=== PATIENT | male | born 1975 | race Caucasian/White ===

== ENCOUNTER 2016-06-15 11:51 | Emergency (ER) | payer OTHER ==
[~2016-06-15] VITALS: Ht 165.1 cm; Wt 68.0 kg
[~2016-06-15 11:51] MED LIST: ATA25 PO; ATOR10TA PO; VENL150C1 PO
[2016-06-15 12:10] VITALS: BP 127/77
--- NOTE | 2016-06-15 12:28 | NUR ---
PT. PRESENTS TO THE ED WITH C/O LOW BACK BACK PAIN X COUPLE MONTHS, HX LOW BACK PAIN, PT. STATES HE WAS SEEN AT [facility] LAST NIGHT FOR SHOULDER PAIN AND WAS GIVEN 5 NORCOS BUT PT. HAS ALREADY TAKEN ALL OF THOSE, NO VISUAL SIGNS OF DISTRESS NOTED, BREATHING EVEN AND UNLABORED, AAOX4, AMBULATORY, GAIT STEADY
[2016-06-15] MEDS ORDERED: CARISOPRODOL 350 MG TAB PO ONE (12:35)
[2016-06-15] MEDS ORDERED: KETOROLAC 60 MG/2 ML VIAL IM ONE (12:35)
[2016-06-15 13:33] VITALS: BP 131/82
== END 2016-06-15 13:34 | disposition home or self-care (01) ==
LOC: MED 11:51
DX: G89.29 Other chronic pain (principal); M54.5 Low back pain; E78.00 Pure hypercholesterolemia, unspecified; F17.210 Nicotine dependence, cigarettes, uncomplicated; Z71.6 Tobacco abuse counseling; Z93.3 Colostomy status; Z98.890 Other specified postprocedural states
CPT/HCPCS: 82948; 96372; 99283; J1885

== ENCOUNTER 2016-08-10 12:03 | Emergency (ER) | payer OTHER ==
[~2016-08-10] VITALS: Ht 165.1 cm; Wt 68.0 kg
[~2016-08-10 12:03] MED LIST changes: -ATA25 PO; +ATARAX HCL25 MG PO; -ATOR10TA PO; +EFFEXOR-XR150 MG PO; +LIPITOR10 MG PO; -VENL150C1 PO
[2016-08-10 12:13] VITALS: BP 139/81
[2016-08-10] MEDS ORDERED: DULOXETINE30 MG PO (12:18)
--- NOTE | 2016-08-10 13:00 | NUR ---
PATIENT PRESENTS TO ED WITH ONGOING RIGHT HAND PAIN AND LOWER BACK PAIN X YEARS PER PT . PT STATES . DENIES N/V/D; SKIN IS PINK/WARM/DRY; AAOX4 WITH EVEN AND STEADY GAIT; LUNGS CLEAR BL; HR EVEN AND REGULAR; PT DENIES ANY FEVER, CP, SOB, OR COUGH AT THIS TIME; PATIENT STATES PAIN OF 10/10 AT THIS TIME; VSS; PATIENT POSITIONED FOR COMFORT; HOB ELEVATED; BEDRAILS UP X2; BED DOWN. ER MD MADE AWARE OF PT STATUS.
--- NOTE | 2016-08-10 13:14 | NUR ---
Patient discharged with v/s stable. Written and verbal after care instructions given and explained. Patient alert, oriented and verbalized understanding of instructions. Ambulatory with steady gait. All questions addressed prior to discharge. ID band removed. Patient advised to follow up with PMD. Rx of ROBAXIN,NEURONTIN given. Patient educated on indication of medication including possible reaction and side effects. Opportunity to ask questions provided and answered.
[2016-08-10 13:15] VITALS: BP 132/84
== END 2016-08-10 13:15 | disposition home or self-care (01) ==
LOC: MED 12:03
DX: M47.898 Other spondylosis, sacral and sacrococcygeal region (principal); M19.041 Primary osteoarthritis, right hand; G89.29 Other chronic pain

== ENCOUNTER 2016-08-27 13:35 | Emergency (ER) | payer MEDICAID, OTHER ==
[~2016-08-27] VITALS: Ht 167.6 cm; Wt 72.1 kg
[~2016-08-27 13:35] MED LIST changes: +ATA25 PO; -ATARAX HCL25 MG PO; +ATOR10TA PO; +DULO30EC PO; -EFFEXOR-XR150 MG PO; -LIPITOR10 MG PO; +VENL150C1 PO
[2016-08-27 13:57] VITALS: BP 112/68
--- NOTE | 2016-08-27 15:05 | NUR ---
pt left without being seen--walked out of er, stating "fuck this place, you guys made me wait"! pt did not allow an explanation---
--- NOTE | 2016-08-27 15:12 | NUR ---
pt returned to waiting lobby
--- NOTE | 2016-08-27 15:20 | NUR ---
pt walked out again
== END 2016-08-27 15:50 | disposition left against medical advice (07) ==
LOC: MED 13:35
DX: M54.5 Low back pain (principal); Z53.21 Procedure and treatment not carried out due to patient leaving prior to being seen by health care provider

== ENCOUNTER 2016-10-21 01:43 | Emergency (ER) | payer MEDICAID, OTHER ==
[~2016-10-21] VITALS: Ht 165.1 cm; Wt 75.7 kg
[2016-10-21 01:49] VITALS: BP 154/97
[2016-10-21] MEDS ORDERED: NACL 0.9% 1,000 ML IV ONE (02:00)
[2016-10-21] MEDS ORDERED: PROMETHAZINE 25 MG/ML VIAL IM ONE (02:00)
[2016-10-21] MEDS ORDERED: ONDANSETRON 4 MG/2 ML VIAL IVP ONE (02:00)
--- NOTE | 2016-10-21 02:18 | NUR ---
PATIENT AMBULATED TO ER OF1.
[2016-10-21] MEDS ORDERED: HYDROmorphone 1 MG/ML AMP IVP ONE (02:25)
[2016-10-21 02:42] LABS: APPEARANCE,URINE HAZY (CLEAR); BILIRUBIN,URINE 1+ (NEGATIVE); BLOOD, URINE NEGATIVE (NEGATIVE); COLOR,URINE YELLOW (YELLOW); LEUKOCYTE ESTERASE ,URINE NEGATIVE (NEGATIVE); NITRITE, URINE NEGATIVE (NEGATIVE); PROTEIN,URINE TRACE (NEGATIVE); UGLUCOSE NEGATIVE (NEGATIVE); UROBILINOGEN,URINE 0.2 EU/dL (0.2 - 1)
[2016-10-21 02:54] LABS: BACTERIA,URINE OCCASSIONAL /HPF (None Seen); ICTOTEST NEGATIVE (NEGATIVE); MUCUS,URINE 3+ /LPF (None Seen); RBC,URINE 0-5 (RARE) /HPF (0-5); SQUAMOUS EPITHELIAL CELL,UR 4-10 (MOD) /LPF (0-3 (FEW)); WBC,URINE 0-5 (RARE) /HPF (0-5)
--- NOTE | 2016-10-21 02:56 | NUR ---
ABDOMINAL PAIN, VOMITTING X4 DAYS, HX HYPERTENSION, HIGH CHOLESTEROL AND PRE DIABETIC,BS 114
--- NOTE | 2016-10-21 03:00 | NUR ---
PATIENT BEING EVALUATED BY DR. TONG.
[2016-10-21 03:04] LABS: HEMATOCRIT 43.1 % (36-52); HEMOGLOBIN 14.1 g/dL (12.0-18.0); MEAN CORPUSCULAR HEMOGLOBIN 30 pg (27-31); MEAN CORPUSCULAR HGB CONC 33 g/dL (33-37); MEAN CORPUSCULAR VOLUME 93 fL (80-94); PLATELET COUNT (AUTO) 281 K/uL (140-450); RED BLOOD CELL COUNT(AUTO) 4.62 MIL/uL (4.20-6.10); RED CELL DISTRIBUTION WIDTH 12.9 % (11.6-13.7); WHITE BLOOD COUNT (AUTO) 12.5 K/uL (4.8-10.8)
[2016-10-21 03:10] LABS: ANION GAP 15.2 (8-16); CALCIUM 9.1 mg/dL (8.5-10.1); CARBON DIOXIDE 25.2 mmol/L (21-32); POTASSIUM 3.4 mmol/L (3.5-5.1)
[2016-10-21 03:13] LABS: LYMPHOCYTES % (MANUAL) 8 % (20-46); MONOCYTES % (MANUAL) 2 % (5-12); NEUTROPHILS % (MANUAL) 90 (43-65)
[2016-10-21 03:16] LABS: ALBUMIN 4.3 g/dL (3.4-5.0); TOTAL BILIRUBIN 0.7 mg/dL (0.0-1.0)
[2016-10-21 03:45] VITALS: BP 117/68
--- NOTE | 2016-10-21 03:45 | NUR ---
Patient discharged with v/s stable. Written and verbal after care instructions given and explained. Patient alert, oriented and verbalized understanding of instructions. Ambulatory with steady gait. All questions addressed prior to discharge. ID band removed. Patient advised to follow up with PMD. Rx of Phenergan and [place] given. Patient educated on indication of medication including possible reaction and side effects. Opportunity to ask questions provided and answered.
== END 2016-10-21 03:45 | disposition home or self-care (01) ==
LOC: MED 01:43
DX: R11.2 Nausea with vomiting, unspecified (principal); E78.5 Hyperlipidemia, unspecified; E11.9 Type 2 diabetes mellitus without complications; I10 Essential (primary) hypertension; E78.00 Pure hypercholesterolemia, unspecified
CPT/HCPCS: 36415; 74176; 80053; 81001; 82150; 82948; 83690; 85025; 96361; 96372; 96374; 96375; 99285; J1170; J2405; J2550; J7030

== ENCOUNTER 2017-06-15 23:18 | Emergency (ER) | payer OTHER ==
[~2017-06-15] VITALS: Ht 165.1 cm; Wt 68.0 kg
--- NOTE | 2017-06-15 23:18 | NUR ---
Patient [facility] BLS accompanied by Merrill JENKINS, transferred to chair C. RN evaluating patient.
[2017-06-15 23:20] VITALS: BP 137/93
--- NOTE | 2017-06-15 23:20 | NUR ---
PATIENT PRESENTS TO ED WITH LEFT KNEE PAIN X1 HOUR. PT DENIES N/V/D; SKIN IS PINK/WARM/DRY; AAOX4 WITH EVEN AND STEADY GAIT; LUNGS CLEAR BL; HR EVEN AND REGULAR; PT DENIES ANY FEVER, CP, SOB, OR COUGH AT THIS TIME; PATIENT STATES PAIN OF 0/10 AT THIS TIME; VSS; PATIENT POSITIONED FOR COMFORT; SITTING UPRIGHT IN CHAIR WITH PD AT CHAIRSIDE. ER MD MADE AWARE OF PT STATUS.
--- NOTE | 2017-06-15 23:48 | NUR ---
Dr. Aguila evaluating patient.
[2017-06-16] VITALS: BP 137/93
--- NOTE | 2017-06-16 | NUR ---
Patient discharged with v/s stable. Written and verbal after care instructions given and explained. Patient verbalized understanding. Police with in custody. All questions addressed prior to discharge. Advised to follow up with PMD.
--- NOTE | 2017-06-16 00:01 | NUR ---
PATIENT BIB [place]. PATIENT EXAMINED BY . PATIENT MEDICALLY CLEARED AND RELEASED IN CUSTODY IN STABLE CONDITION. ORIGINAL PRE-BOOK FORM GIVEN TO OFFICER .
== END 2017-06-16 00:01 ==
LOC: MED 23:18
DX: Z02.89 Encounter for other administrative examinations (principal); S13.4XXA Sprain of ligaments of cervical spine, initial encounter; S80.212A Abrasion, left knee, initial encounter; E78.00 Pure hypercholesterolemia, unspecified; E11.9 Type 2 diabetes mellitus without complications; I10 Essential (primary) hypertension; Z79.899 Other long term (current) drug therapy; W19.XXXA Unspecified fall, initial encounter; Y93.02 Activity, running; Y92.89 Other specified places as the place of occurrence of the external cause; Y99.8 Other external cause status
CPT/HCPCS: 73562; 99284

== ENCOUNTER 2021-07-19 19:37 | Emergency (ER) | payer OTHER ==
[~2021-07-19] VITALS: Ht 167.6 cm; Wt 81.8 kg
[~2021-07-19 19:37] MED LIST changes: -DULO30EC PO; +DULO30EC68 PO; -VENL150C1 PO; +VENL150C4 PO
[2021-07-19 19:43] VITALS: BP 137/91
--- NOTE | 2021-07-19 19:52 | NUR ---
pt ambulatory to bed 03.
--- NOTE | 2021-07-19 20:08 | NUR ---
Dr. Nicholson at bedside to exam patient.
--- NOTE | 2021-07-19 20:50 | NUR ---
Geovanna monae in [facility] - 07/19/21 at 2056 by HANNY xr at bedside
--- NOTE | 2021-07-19 20:54 | NUR ---
xr at [facility]
[2021-07-19] MEDS ORDERED: KETOROLAC 30 MG/ML VIAL IM ONE (20:55)
[2021-07-19 20:56] LABS: BASOPHILS # (AUTO) 0.1 K/uL (0.00-0.22); BASOPHILS % (AUTO) 0.8 % (0.0-2.0); EOSINOPHILS # (AUTO) 0.1 K/uL (0-0.4); EOSINOPHILS % (AUTO) 0.5 % (0.0-4.0); HEMATOCRIT 36.7 % (36-52); HEMOGLOBIN 12.4 g/dL (12.0-18.0); LYMPHOCYTES % (AUTO) 15.3 % (20.5-51.1); MEAN CORPUSCULAR HEMOGLOBIN 31 pg (27-31); MEAN CORPUSCULAR HGB CONC 34 g/dL (33-37); MEAN CORPUSCULAR VOLUME 91.8 fL (80-94); MONOCYTES % (AUTO) 7.7 % (1.7-9.3); NEUTROPHILS % (AUTO) 75.7 % (42.2-75.2); PLATELET COUNT (AUTO) 319 K/uL (140-450); RED BLOOD CELL COUNT(AUTO) 3.99 MIL/uL (4.20-6.10); RED CELL DISTRIBUTION WIDTH 14.1 % (11.6-13.7); WHITE BLOOD COUNT (AUTO) 13.2 K/uL (4.8-10.8)
[2021-07-19] MEDS ORDERED: KETOROLAC 30 MG/ML VIAL IVP ONE (21:10)
[2021-07-19 21:40] LABS: ALBUMIN 3.6 g/dL (3.4-5.0); CARBON DIOXIDE 24.8 mmol/L (21-32); POTASSIUM 3.8 mmol/L (3.5-5.1); TOTAL BILIRUBIN 0.3 mg/dL (0.0-1.0)
--- NOTE | 2021-07-19 21:40 | NUR ---
PATIENT COMPLAINING OF PAIN 9/10-THROBBING, BURNING, NUMB. ERMD MADE AWARE.
[2021-07-19] MEDS ORDERED: MORPHINE SULFATE 4 MG/ML SYR IVP ONE (21:45)
[2021-07-19 21:46] LABS: LIPASE 57 U/L (73-393)
--- NOTE | 2021-07-19 23:20 | NUR ---
Patient signed consent for CT angio chest.
--- NOTE | 2021-07-19 23:31 | NUR ---
Patient taken to CT scan via wheel chair.
--- NOTE | 2021-07-20 01:17 | NUR ---
PATIENT SITTING AT THE EDGE OF THE BED AWAITING RESULTS AND PLAYING ON PHONE. ATTEMPTED TO LEAVE BUT NAVID SIFUENTES SPOKE WITH PATIENT AND WOULD STAY A BIT LONGER. PATIENT AAOX4, GCS 15.
--- NOTE | 2021-07-20 01:49 | NUR ---
patient becoming slightly restless for awaiting on results. Called CT for awaiting results.
[2021-07-20] MEDS ORDERED: NAPR-54 PO (02:09)
--- NOTE | 2021-07-20 02:17 | NUR ---
pt denies ongoing pain or sob.
[2021-07-20 02:18] VITALS: BP 138/84
== END 2021-07-20 02:18 | disposition home or self-care (01) ==
LOC: MED 19:37
DX: R07.9 Chest pain, unspecified (principal); E11.9 Type 2 diabetes mellitus without complications; I10 Essential (primary) hypertension; E78.5 Hyperlipidemia, unspecified; Z71.6 Tobacco abuse counseling; Z79.1 Long term (current) use of non-steroidal anti-inflammatories (NSAID); Z79.899 Other long term (current) drug therapy
CPT/HCPCS: 36415; 71045; 71275; 80053; 83690; 83880; 84484; 85025; 85379; 93005; 96374; 96375; 99285; J1885; J2270; Q9967

== ENCOUNTER 2021-07-29 15:59 | Inpatient (IN) | payer OTHER ==
[~2021-07-29] VITALS: Ht 167.6 cm; Wt 73.5 kg
[~2021-07-29 15:59] MED LIST changes: +NAPR-54 PO
[2021-07-29 16:11] VITALS: BP 149/86
[2021-07-29] MEDS ORDERED: NACL 0.9% 1,000 ML IV ONE (17:00)
[2021-07-29] MEDS ORDERED: ONDANSETRON 4 MG/2 ML VIAL IVP ONE (17:35)
--- NOTE | 2021-07-29 17:42 | NUR ---
PT C/O SUBSTERNAL CHEST PRESSURE X3 DAYS WITH SOB. PT STATES PAIN WORSENS WITH INSPIRATION. STACH ON MONITOR. IV INSERTED TO LEFT AC #18GUAGE FLUIDS INFUSING PER ORDER.
[2021-07-29 18:28] LABS: BASOPHILS # (AUTO) 0.1 K/uL (0.00-0.22); BASOPHILS % (AUTO) 0.4 % (0.0-2.0); HEMATOCRIT 36.6 % (36-52); HEMOGLOBIN 12.2 g/dL (12.0-18.0); LYMPHOCYTES # (AUTO) 1.7 K/uL (2.0-11.5); LYMPHOCYTES % (AUTO) 7.7 % (20.5-51.1); MEAN CORPUSCULAR HEMOGLOBIN 30 pg (27-31); MEAN CORPUSCULAR HGB CONC 33 g/dL (33-37); MEAN CORPUSCULAR VOLUME 90.6 fL (80-94); MONOCYTES # (AUTO) 1.5 K/uL (0.8-1.0); MONOCYTES % (AUTO) 7.1 % (1.7-9.3); NEUTROPHILS # (AUTO) 18.5 K/uL (1.8-7.7); NEUTROPHILS % (AUTO) 84.8 % (42.2-75.2); PLATELET COUNT (AUTO) 527 K/uL (140-450); RED BLOOD CELL COUNT(AUTO) 4.04 MIL/uL (4.20-6.10); RED CELL DISTRIBUTION WIDTH 13.7 % (11.6-13.7); WHITE BLOOD COUNT (AUTO) 21.8 K/uL (4.8-10.8)
[2021-07-29] MEDS ORDERED: KETOROLAC 30 MG/ML VIAL ONE (18:37)
[2021-07-29] MEDS ORDERED: ONDANSETRON 4 MG/2 ML VIAL ONE (18:38)
[2021-07-29 19:20] LABS: ANION GAP 18.3 (8-16); ASPARTATE AMINOTRANSFERASE 40 U/L (15-37); CARBON DIOXIDE 24.2 mmol/L (21-32); CHLORIDE 98 mmol/L (98-107); CREATININE 0.9 mg/dL (0.6-1.3); GFR ARICAN-AMERICAN 118 mL/min (>90); GLUCOSE 109 mg/dL (74-106); LIPASE 111 U/L (73-393); POTASSIUM 4.5 mmol/L (3.5-5.1); SODIUM SERUM 136 mmol/L (136-145); TOTAL BILIRUBIN 0.5 mg/dL (0.0-1.0); UREA NITROGEN, BLOOD 29 mg/dL (7-18)
--- NOTE | 2021-07-29 19:20 | NUR ---
RECIEVED REPORT FROM ROSITA PIERRE
[2021-07-29] MEDS ORDERED: ACETAMINOPHEN EXTRA STRENGTH 500 MG TAB PO ONE (19:30)
[2021-07-29] MEDS ORDERED: AZITHROMYCIN 500 MG in DEXTROSE 5% 250 ML IV ONE (19:40)
[2021-07-29] MEDS ORDERED: cefTRIAXone 1,000 MG VIAL ONE (19:48)
[2021-07-29] MEDS ORDERED: ASPI-1822 PO (20:02)
[2021-07-29] MEDS ORDERED: GABA400C PO (20:02)
[2021-07-29] MEDS ORDERED: ACET-9535 PO (20:02)
[2021-07-29] MEDS ORDERED: CYCL-711 PO (20:02)
[2021-07-29] MEDS ORDERED: AZITHROMYCIN 500 MG INJ VIAL IV ONE (20:18)
[2021-07-29] MEDS ORDERED: ATOR40TA PO (20:31)
[2021-07-29] MEDS ORDERED: MORPHINE SULFATE 4 MG/ML SYR IVP PRN (20:40)
[2021-07-29] MEDS ORDERED: ONDANSETRON 4 MG/2 ML VIAL IVP PRN (20:40)
[2021-07-29] MEDS ORDERED: ACETAMINOPHEN 325 MG TAB PO PRN (20:40)
[2021-07-29] MEDS ORDERED: MAGNESIUM OXIDE 400 MG TAB PO PRN (20:40)
[2021-07-29] MEDS ORDERED: KCL 20 MEQ/WATER INJ PREMIX 200 ML IV PRN (20:40)
[2021-07-29] MEDS ORDERED: POTASSIUM CHLORIDE 10 MEQ TABER PO PRN (20:40)
[2021-07-29] MEDS ORDERED: MAG SULF 2000 MG/WATER PREMIX 50 ML IV PRN (20:40)
--- NOTE | 2021-07-29 21:50 | NUR ---
Patient will be admitted to care of DR JONES. Admited to TELE. Will go to room 111B. Belongings list completed. Report to ROSITA ATWOOD.
[2021-07-29 21:55] VITALS: BP 115/71
--- NOTE | 2021-07-29 21:55 | NUR ---
RECEIVED PT AAOX4 , FROM ER / [facility] , WALKS TO BED - STEADY GAIT , NID - RA - O2 SAT 96 % , IV SITE INTACT AND PATENT . ON TELE MONITOR . ADMISSION ASSESSMENT - DONE , MRSA WILL SEND TO LAB , CALL LIGHT / URINAL WITHIN REACH . PLAN OF CARE DISCUSSED AND VERBALIZES UNDERSTANDING , PER PT HE HAS ON AND OFF SOB AND CHEST PAIN - BUT HE DENIES AT THIS TIME EXCEPT THE BACK PAIN NON RADIATING , CXR RESULT REMARKABLE . WILL CONT. TO MONITOR .
--- NOTE | 2021-07-29 22:00 | NUR ---
C/O BACK PAIN - WILL MEDICATE - BP 115/ 71 - O2 SAT 86 % - RA
[2021-07-29] MEDS: HYDROcodone/APAP 5/325 MG 1 TAB TAB PO PRN (22:05)
[2021-07-30] VITALS (7 sets, daily range): BP systolic 112–150; BP diastolic 65–94
--- NOTE | 2021-07-30 00:50 | NUR ---
ROUNDS , NO COMPLAIN MADE .
[2021-07-30] MEDS: HYDROcodone/APAP 5/325 MG 1 TAB TAB PO PRN (03:50)
--- NOTE | 2021-07-30 03:53 | NUR ---
WHEN I CAME BACK FROM 30 MIN. BREAK - CHRISTEN , TELECOMMUNICATIONS REPAIRER - GAVE NARCO TO THE PT BECAUSE OF CHEST PAIN - ON TELE MONITOR , CALL LIGHT WITHIN REACH - WILL CONT. TO MONITOR
--- NOTE | 2021-07-30 04:00 | NUR ---
C/O NAUSEA , PT VOMITING - BP 150/80 , O2 SAT 97 % , ST ON TELE MONITOR - 118 - WILL MEDICATE . FOR VOMITING , CALL LIGHT WITHIN REACH. WILL CONT. TO MONITOR . Addendum: 07/30/21 at 0448 by Shameka Eldridge RN VOIDED FREELY THRU URINAL
--- NOTE | 2021-07-30 06:42 | NUR ---
STILL C/O NAUSEA AND VOMITING INSPITE OF ZIFRZN TIV GIVEN 2 HRS AGO , C/O NUMBNESS AND TINGLING SENSATION OF FINGERTIPS - WILL INFORM DR JIMENEZ
--- NOTE | 2021-07-30 07:00 | NUR ---
PER PT'S REQUEST - BS 148
--- NOTE | 2021-07-30 07:08 | NUR ---
PATIENT HAS BEEN SCREENED AND CATEGORIZED MODERATE NUTRITION RISK. PATIENT WILL BE SEEN WITHIN 3-5 DAYS OF ADMISSION. 08/02/21-08/04/21 TARIQ JONES MS, RDN
--- NOTE | 2021-07-30 07:18 | NUR ---
ENDORSED - PT -STABLE . NO REPONSE YET FROM DR. JIMENEZ - ENDORSED
--- NOTE | 2021-07-30 07:19 | NUR ---
RECEIVED BEDSIDE REPORT FROM BLANKMAKER NURSE, PT RESTING NO DISTRESS NOTED, PT FEELING NAUSEA, ZOFRAN WAS ALREADY GIVEN BY BLANKMAKER NURSE, NO RELIEF, WILL CALL DR. MATT TO LEFT AC 18G PATENT INTACT, INFUSING WELL, PT ON ROOM AIR, NO SOB NOTED, INITIAL ASSESSMENT DONE, ALL SAFETY PRECAUTION MET, CALL LIGHT WITHIN REACH, WILL CONTINUE TO MONITOR.
[2021-07-30 07:28] LABS: BASOPHILS # (AUTO) 0.1 K/uL (0.00-0.22); BASOPHILS % (AUTO) 0.3 % (0.0-2.0); HEMATOCRIT 33.7 % (36-52); HEMOGLOBIN 11.3 g/dL (12.0-18.0); LYMPHOCYTES # (AUTO) 0.6 K/uL (2.0-11.5); LYMPHOCYTES % (AUTO) 3.6 % (20.5-51.1); MEAN CORPUSCULAR HEMOGLOBIN 30 pg (27-31); MEAN CORPUSCULAR HGB CONC 34 g/dL (33-37); MEAN CORPUSCULAR VOLUME 89.6 fL (80-94); MONOCYTES # (AUTO) 1.1 K/uL (0.8-1.0); MONOCYTES % (AUTO) 6.1 % (1.7-9.3); PLATELET COUNT (AUTO) 458 K/uL (140-450); RED BLOOD CELL COUNT(AUTO) 3.76 MIL/uL (4.20-6.10); RED CELL DISTRIBUTION WIDTH 13.6 % (11.6-13.7); WHITE BLOOD COUNT (AUTO) 17.8 K/uL (4.8-10.8)
[2021-07-30 07:39] LABS: ALBUMIN 2.6 g/dL (3.4-5.0); ANION GAP 13.6 (8-16); CARBON DIOXIDE 25.8 mmol/L (21-32); CREATININE 0.9 mg/dL (0.6-1.3); MAGNESIUM 2.7 mg/dL (1.8-2.4); POTASSIUM 3.4 mmol/L (3.5-5.1); TOTAL BILIRUBIN 0.3 mg/dL (0.0-1.0)
[2021-07-30 08:06] LABS: BARBITURATE, URINE NEGATIVE ng/ml (NEG <=200); BENZODIAZEPINE, URINE NEGATIVE ng/mL (NEG <=200); CANNABINOID, URINE POSITIVE ng/mL (NEG <=50); COCAINE, URINE NEGATIVE ng/mL (NEG <=300); OPIATE, URINE POSITIVE ng/mL (NEG <=2000); PHENCYCLIDINE SCREEN,URINE NEGATIVE ng/mL (NEG <=25)
--- NOTE | 2021-07-30 08:16 | NUR ---
TALKED TO DR PLUNKETT REGARDING PT NAUSEA AND VOMITING, PER DR TO ORDER REGLAN 10MG PRN Q6H IVP. WILL CONTINUE WITH ORDERS.
[2021-07-30] MEDS: METOCLOPRAMIDE 10 MG/2 ML INJ VIAL IVP PRN (08:34)
[2021-07-30] MEDS: ENOXAPARIN 40 MG/0.4 ML SYR SUBQ SCH (08:35)
--- NOTE | 2021-07-30 09:45 | NUR ---
DUE MEDICATIONS ADMINISTERED, PT TOLERATED WELL, WILL CONTINUE TO MONITOR.
--- NOTE | 2021-07-30 09:47 | NUR ---
NOTED PT TOOK ONE PILL OF OMEPRAZOLE 20MG FROM HOME PILLS. WILL NOTIFY PT RESTING, NO DISTRESS NOTED, TOLD PT TO NOT TAKE ANY OTHER PILLS WHEN HE IS IN THE HOSPITAL, STATED UNDERSTANDING, WILL CONTINUE TO MONITOR.
--- NOTE | 2021-07-30 11:20 | NUR ---
CHECKED ON PT, PT STATED NO LONGER FEELING NAUSEATED, WILL CONTINUE TO MONITOR.
--- NOTE | 2021-07-30 16:10 | NUR ---
CHECKED ON PT, PT RESTING, NO NAUSEA, FAMILY AT BEDSIDE, WILL CONTINUE TO MONITOR.
--- NOTE | 2021-07-30 19:22 | NUR ---
ENDORSED PT TO OFFICIAL COURT REPORTER NURSE FOR CONTINUOUS OF CARE
--- NOTE | 2021-07-30 19:38 | NUR ---
GET THE REPORT FROM MORNING NURSE,PATIENT IS LYING ON BED ,PATIENT IS ALERT AND ORIENTED X4, NO ANY COMPLAIN OF PAIN OR SHORTNESS OF BREATH AT THIS TIME, CALL LIGHT IS WITHIN THE REACH ,WILL CONTINUE TO MONITOR PATIENT.
[2021-07-30] MEDS ORDERED: AZITHROMYCIN 500 MG in DEXTROSE 5% 250 ML IV SCH (20:00)
--- NOTE | 2021-07-30 21:38 | NUR ---
PATIENT IS LYING ON BED, VITAL SIGN IS WITHIN THE NORMAL RANGE , ALL SCHEDULE MEDICATION IS GIVEN PER DOCTOR ORDER, CALL LIGHT IS WITHIN THE REACH ,WILL CONTINUE TO MONITOR PATIENT.
[2021-07-31] VITALS: BP 129/81
--- NOTE | 2021-07-31 00:17 | NUR ---
PATIENT IS LYING ON BED, VITAL SIGN IS WITHIN THE NORMAL RANGE, CALL LIGHT IS WITHIN THE REACH,WILL CONTINUE TO MONITOR PATIENT.
[2021-07-31 04:00] VITALS: BP 135/78
--- NOTE | 2021-07-31 04:23 | NUR ---
PATIENT IS LYING ON BED, NO ANY COMPLAIN OF PAIN OR SHORTNESS OF BREATH AT THIS TIME , VITAL SIGN IS WITHIN THE NORMAL RANGE, CALL LIGHT IS WITHIN THE REACH,WILL CONTINUE TO MONITOR PATIENT.
[2021-07-31 06:33] LABS: BASOPHILS % (AUTO) 0.4 % (0.0-2.0); EOSINOPHILS % (AUTO) 0.2 % (0.0-4.0); HEMATOCRIT 35.3 % (36-52); HEMOGLOBIN 11.8 g/dL (12.0-18.0); LYMPHOCYTES # (AUTO) 1.2 K/uL (2.0-11.5); MEAN CORPUSCULAR HEMOGLOBIN 30 pg (27-31); MEAN CORPUSCULAR HGB CONC 34 g/dL (33-37); MONOCYTES # (AUTO) 0.7 K/uL (0.8-1.0); MONOCYTES % (AUTO) 5.6 % (1.7-9.3); NEUTROPHILS # (AUTO) 9.7 K/uL (1.8-7.7); NEUTROPHILS % (AUTO) 83.8 % (42.2-75.2); PLATELET COUNT (AUTO) 429 K/uL (140-450); RED BLOOD CELL COUNT(AUTO) 3.93 MIL/uL (4.20-6.10); RED CELL DISTRIBUTION WIDTH 13.8 % (11.6-13.7); WHITE BLOOD COUNT (AUTO) 11.6 K/uL (4.8-10.8)
[2021-07-31 06:42] LABS: ALBUMIN 2.5 g/dL (3.4-5.0); ANION GAP 14.4 (8-16); CARBON DIOXIDE 25.3 mmol/L (21-32); CREATININE 0.7 mg/dL (0.6-1.3); MAGNESIUM 2.7 mg/dL (1.8-2.4); POTASSIUM 3.7 mmol/L (3.5-5.1); TOTAL BILIRUBIN 0.3 mg/dL (0.0-1.0)
--- NOTE | 2021-07-31 07:33 | NUR ---
GAVE REPORT TO MORNING NURSE CRUZ FOR CONTINUOS OF CARE,PATIENT IS STABLE.
--- NOTE | 2021-07-31 07:34 | NUR ---
RECEIVED BEDSIDE REPORT FROM NOVELTY CHAIN MAKER NURSE, PT IS AOX4, ABLE TO MAKE NEEDS KNOWN. RESTING NO DISTRESS NOTED, ON ROOM AIR. SKIN IS WARM, DRY, AND INTACT. IV TO LEFT AC 18G PATENT INTACT. SALINE LOCKED. PLAN OF CARE DISCUSSED. INITIAL ASSESSMENT DONE, ALL SAFETY PRECAUTION MET, CALL LIGHT WITHIN REACH, WILL CONTINUE TO MONITOR.
[2021-07-31 08:00] VITALS: BP 136/96
[2021-07-31] MEDS: ENOXAPARIN 40 MG/0.4 ML SYR SUBQ SCH (08:25)
[2021-07-31] MEDS: METOCLOPRAMIDE 10 MG/2 ML INJ VIAL IVP PRN (08:37)
--- NOTE | 2021-07-31 08:45 | NUR ---
ALL SCHEDULED MEDS GIVEN. PT IS STABLE. NO DISTRESS NOTED. WILL CONTINUE TO MONITOR.
--- NOTE | 2021-07-31 11:38 | NUR ---
CHECKED ON PATIENT. PT IS STABLE. NO DISTRESS NOTED. WILL CONTINUE TO MONITOR.
[2021-07-31 12:00] VITALS: BP 144/98
--- NOTE | 2021-07-31 12:55 | NUR ---
07/31/2021 RD INITIAL ASSESSMENT COMPLETED. PLEASE REFER TO NUTRITION ASSESSMENT UNDER CARE ACTIVITY FOR ESTIMATED NUTRITIONAL NEEDS. CONTINUE WITH REGULAR DIET. RD TO FOLLOW-UP IN 3-5 DAYS PATIENT IS MODERATE RISK. ANTONIO DUENAS RD
[2021-07-31] MEDS ORDERED: LEVO-315 PO (15:19)
[2021-07-31] MEDS ORDERED: METO-486 PO (15:33)
[2021-07-31 15:36] VITALS: BP 140/95
--- NOTE | 2021-07-31 16:00 | NUR ---
ENDORSED DISCHARGE INSTRUCTIONS TO PATIENT. PT VERBALIZED UNDERSTANDING AND SIGNED DISCHARGE FORMS.
--- NOTE | 2021-07-31 16:05 | NUR ---
PATIENT DISCHARGED OFF THE UNIT. IV AND ID BAND REMOVED. ESCORTED PT TO FRONT LOBBY. PT WAS STABLE PRIOR TO DISCHARGE
== END 2021-07-31 16:05 | disposition home or self-care (01) | DRG 139 ==
LOC: MED 15:59 → MTU 20:40
PROVIDERS: ADMIT Hospitalist; ATTEND Hospitalist
DX: J18.9 Pneumonia, unspecified organism (principal); E44.1 Mild protein-calorie malnutrition; R65.10 Systemic inflammatory response syndrome (SIRS) of non-infectious origin without acute organ dysfunction; E78.5 Hyperlipidemia, unspecified; F15.10 Other stimulant abuse, uncomplicated; Z20.822 Contact with and (suspected) exposure to COVID-19; F12.10 Cannabis abuse, uncomplicated; Z79.899 Other long term (current) drug therapy; Z79.891 Long term (current) use of opiate analgesic
CPT/HCPCS: 36415; 71045; 80053; 80305; 83605; 83690; 83735; 84484; 85025; 87040; 87081; 93005; 96361; 96365; 96367; 96375; 99285; J0456; J0696; J1650; J1885; J2405; J2765; J7030; J7060

== ENCOUNTER 2021-08-22 12:09 | Emergency (ER) | payer OTHER ==
[~2021-08-22] VITALS: Ht 167.6 cm; Wt 82.6 kg
[~2021-08-22 12:09] MED LIST changes: +ACET-9535 PO; +ASPI-1822 PO; -ATA25 PO; -ATOR10TA PO; +ATOR40TA PO; +CYCL-711 PO; -DULO30EC68 PO; +GABA400C PO; +LEVO-315 PO; +METO-486 PO; -NAPR-54 PO; -VENL150C4 PO
[2021-08-22 12:17] VITALS: BP 121/70
--- NOTE | 2021-08-22 13:29 | NUR ---
AMBULATED TO BED 12
[2021-08-22 14:02] LABS: BASOPHILS # (AUTO) 0.1 K/uL (0.00-0.22); EOSINOPHILS # (AUTO) 0.2 K/uL (0-0.4); EOSINOPHILS % (AUTO) 2.4 % (0.0-4.0); HEMATOCRIT 36.1 % (36-52); HEMOGLOBIN 11.9 g/dL (12.0-18.0); LYMPHOCYTES # (AUTO) 2.1 K/uL (2.0-11.5); LYMPHOCYTES % (AUTO) 24.5 % (20.5-51.1); MEAN CORPUSCULAR HEMOGLOBIN 30 pg (27-31); MEAN CORPUSCULAR HGB CONC 33 g/dL (33-37); MONOCYTES # (AUTO) 0.7 K/uL (0.8-1.0); MONOCYTES % (AUTO) 8.7 % (1.7-9.3); NEUTROPHILS # (AUTO) 5.4 K/uL (1.8-7.7); NEUTROPHILS % (AUTO) 63.4 % (42.2-75.2); PLATELET COUNT (AUTO) 304 K/uL (140-450); RED BLOOD CELL COUNT(AUTO) 3.97 MIL/uL (4.20-6.10); RED CELL DISTRIBUTION WIDTH 15.3 % (11.6-13.7); WHITE BLOOD COUNT (AUTO) 8.6 K/uL (4.8-10.8)
[2021-08-22 14:16] LABS: ALBUMIN 3.3 g/dL (3.4-5.0); ANION GAP 10.6 (8-16); CARBON DIOXIDE 27.6 mmol/L (21-32); CREATININE 0.9 mg/dL (0.6-1.3); POTASSIUM 4.2 mmol/L (3.5-5.1); TOTAL BILIRUBIN 0.2 mg/dL (0.0-1.0)
--- NOTE | 2021-08-22 15:34 | NUR ---
no nursing interventions done at this time
[2021-08-22 15:45] VITALS: BP 121/70
--- NOTE | 2021-08-22 15:46 | NUR ---
Patient discharged with v/s stable. Written and verbal after care instructions given and explained. Patient verbalized understanding. Ambulatory with steady gait. All questions addressed prior to discharge. Advised to follow up with PMD.
== END 2021-08-22 15:46 | disposition home or self-care (01) ==
LOC: MED 12:09
DX: K44.9 Diaphragmatic hernia without obstruction or gangrene (principal); K42.9 Umbilical hernia without obstruction or gangrene; M95.5 Acquired deformity of pelvis; I10 Essential (primary) hypertension; J45.909 Unspecified asthma, uncomplicated; F12.90 Cannabis use, unspecified, uncomplicated; E11.9 Type 2 diabetes mellitus without complications; Z00.00 Encounter for general adult medical examination without abnormal findings; Z79.4 Long term (current) use of insulin; Z18.10 Retained metal fragments, unspecified
CPT/HCPCS: 36415; 80053; 81002; 83690; 85025; 99284